=== PATIENT | female | born 1960 | race Caucasian/White ===

== ENCOUNTER 2016-09-17 09:22 | Day surgery (SDC) | payer OTHER ==
--- NOTE | 2016-09-09 15:45 | HP ---
DATE OF ADMISSION: 09/17/2016 REASON FOR ADMISSION: Basal cell carcinoma, chest. BRIEF HISTORY: This is a 56-year-old female who had a nonhealing wound of the anterior left chest. She underwent biopsy of this, and it is consistent with basal cell carcinoma, nodular type. This extends into the base of the biopsy. She needs wide excision. PAST MEDICAL HISTORY: No coronary disease, hypertension, or diabetes. PAST SURGICAL HISTORY: x4. MEDICATIONS: None. ALLERGIES: None. SOCIAL HISTORY: Denies tobacco. Drinks socially. PHYSICAL EXAMINATION: Lungs: Clear. Heart: Regular rhythm. Abdomen: Soft. Chest: Just at the manubrium sternal junction is the lesion at this level. It is 2 fingerbreadths off to the patient's midline. This area is well healed and looks almost like a mole. IMPRESSION/PLAN: Basal cell carcinoma, left chest. We will plan for a wide excision in the operating room. Prior to surgery, patient will have a slide review. Nila PATHAK [id number] cc: MD Ricardo Wolf MD MTDD
[2016-09-16 10:49] VITALS: BMI 29.9
[2016-09-17] MEDS ORDERED: MIDAZOLAM HCL 2 MG/2 ML SINGLE DOSE VIAL ONE (12:00)
[2016-09-17] MEDS ORDERED: ONDANSETRON 4 MG/2 ML VIAL ONE (12:08)
[2016-09-17] MEDS ORDERED: DEXAMETHASONE SOD PHOSPHATE 4 MG/1 ML VIAL ONE (12:08)
[2016-09-17] MEDS ORDERED: ceFAZolin SODIUM 1 GM VIAL ONE (12:08)
[2016-09-17] MEDS ORDERED: KETOROLAC TROMETHAMINE 30 MG/1 ML VIAL ONE (12:08)
[2016-09-17 13:15] VITALS: BP 112/65; PULSE 68; TEMP 98
--- NOTE | 2016-09-17 23:50 | OP ---
DATE OF OPERATION: 09/17/2016 PREOPERATIVE DIAGNOSIS: Basal cell carcinoma of the chest. POSTOPERATIVE DIAGNOSIS: Basal cell carcinoma of the chest. PROCEDURE: Wide excision basal cell carcinoma of the chest with 5-cm intermediate wound closure. SURGEON: Shabbir Mathew M.D. CRAB BUTCHER: None. ANESTHESIOLOGIST: Baldomero Gonzalez M.D. (MAC/1% lidocaine without epinephrine). ESTIMATED BLOOD LOSS: Minimal. SPECIMEN: Basal cell carcinoma. INDICATION FOR PROCEDURE: This is a 56-year-old female with biopsy proven basal cell carcinoma of the chest. She is here for wide excision. DESCRIPTION OF PROCEDURE: Patient is identified, and appropriately positioned on operating room table. She is placed on IV sedation and the area prepped and draped in the usual sterile fashion with Chloraprep. The skin was anesthetized with 1% lidocaine without epinephrine. The area was then incised in an elliptical fashion and oriented on the lines of . The lesion was excised down to the level of the subcutaneous fat. The specimen was marked with single silk stitch marking 12 o'clock, double skin 3 o'clock, skin anterior. Hemostasis achieved with cautery. The wound irrigated, and operative site examined and noted to be hemostatic. The dermis was approximated with interrupted 3-0 Vicryl suture, and the skin closed with 4-0 subcuticular Biosyn followed by Dermabond. Length of incision 5 cm. Counts correct. ATTESTATION: Written. Nila PATHAK [id number] cc: Dr. Scott BROWN
--- NOTE | 2016-09-23 10:10 | PATH ---
Surgical Pathology Report Patient Name: SEBASTIEN PICKARD [facility]. Rec. #: [id number] /Age/Gender: 1960 (Age: 56) / F Account: [id number] Location: [facility] Taken: 09/17/2016 Received: 09/17/2016 Reported: 09/23/2016 Physicians: Shabbir Mathew Specimen(s) Received BASAL CELL CARCINOMA UPPER CHEST WALL Clinical History Wide excision of basal cell cancer of chest Final Diagnosis Upper chest wall, basal cell carcinoma, wide excision: Focal residual basal cell carcinoma, completely excised. Basal cell carcinoma is at 3 mm from the closest 6:00 MARGIN and at 3 mm from the deep margin. Remaining skin shows scar and solar elastosis. Electronically Signed Almaz Mcleod M.D. Gross Description Received in formalin labeled "basal cell carcinoma upper chest wall," is a 3.8 x 1.0 cm dillon, elliptical portion of skin excised to a depth of 0.5 cm. There is a single stitch marking the 1:00 aspect of the specimen and a double stitch marking the 3:00 tip, per the surgeon. The epidermal surface displays a 0.3 x 0.2 cm central, depressed lesion. The specimen is inked as follows: 9:00 to12:00 to 3:00 blue; 3:00 to 6:00 to 9:00 green; deep black; 3:00 tip differentially inked red. The specimen is serially sectioned from 3:00 to 9:00. The specimen is entirely and sequentially submitted from 3:00 to 9:00 in 7 cassettes (3:00 tip in cassette 1, 9:00 tip in cassette 7, and the lesion in cassettes 3-4, corresponding to 6:00). 09/18/2016 saudi09/18/2016
== END 2016-09-17 13:30 | disposition home or self-care (01) ==
LOC: FASU 09:22
PROVIDERS: ATTEND Surgery
PROC: 0JB60ZZ Excision of Chest Subcutaneous Tissue and Fascia, Open Approach (ICD-10-PCS; 2016-09-17)
PROC: 0JQ60ZZ Repair Chest Subcutaneous Tissue and Fascia, Open Approach (ICD-10-PCS; principal; 2016-09-17 12:22)
DX: C44.519 Basal cell carcinoma of skin of other part of trunk (principal)
CPT/HCPCS: 88307-TC